=== PATIENT | male | born 1945 | race African-American/Black ===

== ENCOUNTER 2023-09-18 14:34 | Inpatient (IN) | payer MEDICARE ==
[~2023-09-18] VITALS: Ht 182.9 cm; Wt 82.1 kg
[2023-09-18] MEDS: SODIUM CHLORIDE 0.9% 1,000 ML IV ONE (15:00)
[2023-09-18 15:28] LABS: HEMATOCRIT. 39.9 % (42.0-52.0); HEMOGLOBIN. 13.3 g/dL (14.0-18.0); MEAN CORPUSCULAR HEMOGLOBIN 30.7 pg (28.0-32.0); MEAN CORPUSCULAR HGB CONC 33.3 g/dL (31.0-37.0); MEAN CORPUSCULAR VOLUME 92.1 fL (80.0-94.0); MEAN PLATELET VOLUME 9.6 fl (7.4-10.4); PLATELET 202 x1000/uL (130-400); RED BLOOD CELL COUNT 4.34 mill/uL (4.7-6.1); RED CELL DISTRIBUTION WIDTH 13.6 % (11.6-14.6); WHITE BLOOD COUNT 19.1 x1000/uL (4.5-11.0)
[2023-09-18 15:31] LABS: DIFFERENTIAL COMMENT 1
[2023-09-18 15:34] LABS: CARBON DIOXIDE 32 mEq/L (21-32)
[2023-09-18 15:35] LABS: CALCIUM 9.6 mg/dL (8.7-10.4); CHLORIDE 102 mEq/L (98-107); SODIUM 137 mEq/L (136-145)
[2023-09-18 15:39] LABS: INR 1.3; PROTHROMBIN TIME 14.5 sec (9.6-11.0)
[2023-09-18 15:40] LABS: GLUCOSE 299 mg/dL (70-105); LACTIC ACID 2.5 mmol/L (0.4-2.0); UREA NITROGEN BLOOD 22 mg/dL (9-23)
[2023-09-18 15:42] LABS: ACETAMINOPHEN < 2 ug/mL (10-30); CREATINE KINASE 41 IU/L (46-171)
[2023-09-18 15:44] LABS: T4 FREE 1.01 ng/dL (0.89-1.76); THYROID STIMULATING HORMONE 0.98 uIU/mL (0.55-4.78)
[2023-09-18] MEDS: CEFTRIAXONE 1GM/50ML 50 ML IV ONE (15:45)
[2023-09-18 15:50] LABS: TROPONIN I HIGH SENSITIVITY 74 ng/L (3.0-53)
[2023-09-18 16:10] LABS: BETA HYDROXYBUTYRATE 0.1 mMol/L (0.0-0.3)
[2023-09-18 17:26] LABS: ETHANOL BLOOD < 10 mg/dL (<10)
[2023-09-18] MEDS ORDERED: ACETAMINOPHEN 325MG TABLET PO PRN (17:30)
[2023-09-18] MEDS: DEXT 5%/0.9% NACL 1,000 ML IV SCH (17:30)
[2023-09-18] MEDS ORDERED: ONDANSETRON HCL 4MG/2ML INJ IV PRN (17:30)
[2023-09-18] MEDS ORDERED: IPRATROPIUM/ALBUTEROL 0.5-3(2.5)MG/3ML NEB HHN PRN (17:30)
[2023-09-18] MEDS ORDERED: DIPHENHYDRAMINE 50MG/ML VIAL IV PRN (17:30)
[2023-09-18] MEDS ORDERED: CLONIDINE 0.1MG TABLET PO PRN (17:30)
[2023-09-18 17:59] LABS: NUCLEATED RED BLOOD CELLS 1 /100 WBC; PLATELET ESTIMATE NORMAL
[2023-09-18 18:13] LABS: CLARITY URINE CLOUDY (CLEAR); COLOR URINE DARK YELLOW (YELLOW); GLUCOSE URINE 3+ (NEGATIVE); KETONES URINE NEGATIVE (NEGATIVE); LEUKOCYTE ESTERASE URINE 2+ (NEGATIVE); NITRITE URINE NEGATIVE (NEGATIVE); OCCULT BLOOD URINE 2+ (NEGATIVE); PH URINE 5.5 (4.5-8.0); PROTEIN URINE 2+ (NEGATIVE); SPECIFIC GRAVITY URINE 1.026 (1.005-1.030)
[2023-09-18 18:29] LABS: BACTERIA URINE 3+; SQUAMOUS EPITHELIAL CELL URINE FEW /lpf (RARE/1+)
[2023-09-18 18:30] LABS: *AMPHETAMINES SCREEN URINE NEGATIVE (NEGATIVE); *BARBITURATES SCREEN URINE NEGATIVE (NEGATIVE); *BENZODIAZEPINES SCREEN URINE NEGATIVE (NEGATIVE); *COCAINE SCREEN URINE NEGATIVE (NEGATIVE); CANNABINOID URINE SCREEN NEGATIVE (NEGATIVE); METHADONE URINE SCREEN NEGATIVE (NEGATIVE); OPIATES URINE SCREEN NEGATIVE (NEGATIVE); PHENCYCLIDINE URINE SCREEN NEGATIVE (NEGATIVE); WBC URINE 50-100 /hpf (0-2)
[2023-09-18 18:31] LABS: ECSTASY MDMA SCREEN URINE NEGATIVE (NEGATIVE)
[2023-09-18 22:00] VITALS: BP 159/95; PULSE 69; RESP 20; TEMP 99.9
[2023-09-18] MEDS ORDERED: DEXTROSE 50% WATER 50ML SYRINGE IV PRN (22:15)
[2023-09-18] MEDS: INSULIN LISPRO 100 UNITS/ML SUBCUT SCH (22:54)
[2023-09-18] MEDS: BLOOD SUGAR DIAGNOSTIC STRIP TEST SCH (22:54)
[2023-09-19] VITALS (7 sets, daily range): BP systolic 129–176; BP diastolic 50–111; PULSE 70–116; RESP 17–21; TEMP 97.4–98.8
[2023-09-19 06:24] LABS: CHLORIDE 103 mEq/L (98-107); POTASSIUM 3.8 mEq/L (3.5-5.1); SODIUM 138 mEq/L (136-145)
[2023-09-19 06:25] LABS: CARBON DIOXIDE 30 mEq/L (21-32)
[2023-09-19 06:26] LABS: CALCIUM 9.1 mg/dL (8.7-10.4)
[2023-09-19 06:30] LABS: GLUCOSE 271 mg/dL (70-105)
[2023-09-19 06:31] LABS: HEMATOCRIT. 41.1 % (42.0-52.0); MEAN CORPUSCULAR HEMOGLOBIN 30.9 pg (28.0-32.0); MEAN CORPUSCULAR HGB CONC 34.1 g/dL (31.0-37.0); MEAN CORPUSCULAR VOLUME 90.5 fL (80.0-94.0); MEAN PLATELET VOLUME 10.1 fl (7.4-10.4); PLATELET 184 x1000/uL (130-400); RED BLOOD CELL COUNT 4.54 mill/uL (4.7-6.1); RED CELL DISTRIBUTION WIDTH 13.9 % (11.6-14.6); UREA NITROGEN BLOOD 19 mg/dL (9-23); WHITE BLOOD COUNT 17.6 x1000/uL (4.5-11.0)
[2023-09-19 07:02] LABS: DIFFERENTIAL COMMENT 1
[2023-09-19 14:09] LABS: PLATELET ESTIMATE NORMAL
[2023-09-19] MEDS ORDERED: CEFTRIAXONE 1GM/50ML 50 ML IV SCH (15:00)
[2023-09-19] MEDS: CEFTRIAXONE 1GM/50ML 50 ML IV SCH (15:10)
[2023-09-19] MEDS: ENOXAPARIN 80MG/0.8ML SYR SUBCUT SCH (21:03)
[2023-09-19 21:18] LABS: TROPONIN I HIGH SENSITIVITY 47 ng/L (3.0-53)
[2023-09-20] VITALS (7 sets, daily range): BP systolic 105–148; BP diastolic 57–77; PULSE 68–97; RESP 18–20; TEMP 97.4–99; O2SAT 97
[2023-09-20 07:15] LABS: CARBON DIOXIDE 28 mEq/L (21-32); CHLORIDE 106 mEq/L (98-107); SODIUM 140 mEq/L (136-145)
[2023-09-20 07:21] LABS: GLUCOSE 225 mg/dL (70-105); UREA NITROGEN BLOOD 20 mg/dL (9-23)
[2023-09-20 07:26] LABS: HEMOGLOBIN. 13.7 g/dL (14.0-18.0); MEAN CORPUSCULAR HEMOGLOBIN 30.8 pg (28.0-32.0); MEAN CORPUSCULAR HGB CONC 33.4 g/dL (31.0-37.0); MEAN CORPUSCULAR VOLUME 92.1 fL (80.0-94.0); MEAN PLATELET VOLUME 10.6 fl (7.4-10.4); PLATELET 197 x1000/uL (130-400); RED BLOOD CELL COUNT 4.45 mill/uL (4.7-6.1); RED CELL DISTRIBUTION WIDTH 13.6 % (11.6-14.6)
[2023-09-20 08:27] LABS: DIFFERENTIAL COMMENT 1
[2023-09-20] MEDS: DILTIAZEM HCL 30MG TABLET PO SCH (08:58)
[2023-09-20] MEDS: INSULIN GLARGINE 100 UNITS/ML SUBCUT SCH (10:05)
[2023-09-20 12:22] LABS: PLATELET ESTIMATE NORMAL
[2023-09-20] MEDS: MAGNESIUM 2 G PREMIX 50 ML IV NR (15:01)
[2023-09-20] MEDS: CEFAZOLIN 1000MG PREMIX 50 ML IV SCH (15:04)
[2023-09-20] MEDS: LORAZEPAM 2MG/ML INJ IV PRN (20:27)
[2023-09-21 04:00] VITALS: BP 155/67; PULSE 89; RESP 20; TEMP 97.6
[2023-09-21 08:00] VITALS: BP 115/56; PULSE 64; RESP 20; TEMP 99
[2023-09-21 10:13] LABS: BASOPHILS % 0.2 % (0.0-2.0); EOSINOPHILS % 0.1 % (0.0-5.0); HEMATOCRIT. 35.3 % (42.0-52.0); HEMOGLOBIN. 11.9 g/dL (14.0-18.0); LYMPHOCYTES % 9.1 % (20.0-50.0); MEAN CORPUSCULAR HEMOGLOBIN 30.3 pg (28.0-32.0); MEAN CORPUSCULAR HGB CONC 33.8 g/dL (31.0-37.0); MEAN CORPUSCULAR VOLUME 89.9 fL (80.0-94.0); MEAN PLATELET VOLUME 9.8 fl (7.4-10.4); MONOCYTES % 8.5 % (2.0-8.0); NEUTROPHILS % 82.1 % (40.0-76.0); PLATELET 204 x1000/uL (130-400); RED BLOOD CELL COUNT 3.93 mill/uL (4.7-6.1); RED CELL DISTRIBUTION WIDTH 13.6 % (11.6-14.6); WHITE BLOOD COUNT 10.5 x1000/uL (4.5-11.0)
[2023-09-21 10:37] LABS: CARBON DIOXIDE 29 mEq/L (21-32); CHLORIDE 107 mEq/L (98-107); POTASSIUM 3.5 mEq/L (3.5-5.1); SODIUM 139 mEq/L (136-145)
[2023-09-21 10:38] LABS: CALCIUM 8.4 mg/dL (8.7-10.4)
[2023-09-21 10:43] LABS: CREATININE 0.9 mg/dL (0.6-1.3); GLUCOSE 239 mg/dL (70-105); UREA NITROGEN BLOOD 19 mg/dL (9-23)
[2023-09-21 12:00] VITALS: BP 155/48; PULSE 69; RESP 22; TEMP 98.6
[2023-09-21] MEDS ORDERED: LANTUSUD SUBCUT (13:47)
[2023-09-21] MEDS ORDERED: LEVO750T68 MT ×2 (13:47→17:27)
[2023-09-21] MEDS ORDERED: METF-414 MT ×2 (13:47→17:27)
[2023-09-21] MEDS ORDERED: APIX5TAB MT ×2 (13:47→17:27)
[2023-09-21 16:00] VITALS: BP_SYST 110; BP_SYST 143; BP_DIAS 53; BP_DIAS 60; PULSE 55; PULSE 68; RESP 20; TEMP 98
[2023-09-21] MEDS ORDERED: INSU100I28 SQ (17:27)
== END 2023-09-21 18:47 | disposition home or self-care (01) | DRG 871 ==
LOC: ER 14:34 → EDBEDREQSVC 17:10 → EDBEDREQTM 17:10 → EDBEDREQ 17:10 → EDBEDREQSVC 17:43 → 8WST 21:37
PROVIDERS: ADMIT Internal Medicine; ATTEND Internal Medicine
DX: A41.9 Sepsis, unspecified organism (principal); I21.A1 Myocardial infarction type 2; N39.0 Urinary tract infection, site not specified; I44.1 Atrioventricular block, second degree; E11.649 Type 2 diabetes mellitus with hypoglycemia without coma; I10 Essential (primary) hypertension; F03.90 Unspecified dementia, unspecified severity, without behavioral disturbance, psychotic disturbance, mood disturbance, and anxiety; R82.71 Bacteriuria; I48.0 Paroxysmal atrial fibrillation; Z79.4 Long term (current) use of insulin
CPT/HCPCS: 36415; 71045; 80048; 80305; 80307; 80320; 80329; 81003; 82010; 82550; 82962; 83036; 83605; 83735; 84145; 84439; 84443; 84484; 85025; 87077; 87186; 93005; 93306; 93970; 99291; J0690; J0696; J1650; J1815; J2060; J3475; J7030; G0480

== ENCOUNTER 2023-10-13 13:54 | Inpatient (IN) | payer MEDICARE ==
[~2023-10-13] VITALS: Ht 190.5 cm; Wt 78.0 kg
[~2023-10-13 13:54] MED LIST: APIX5TAB MT; INSU100I28 SQ; LEVO750T68 MT; METF-414 MT
[2023-10-13] MEDS: SODIUM CHLORIDE 0.9% 1,000 ML IV ONE (14:15)
[2023-10-13 14:50] LABS: BASOPHILS % 0.8 % (0.0-2.0); EOSINOPHILS % 1.3 % (0.0-5.0); HEMATOCRIT. 37.4 % (42.0-52.0); HEMOGLOBIN. 12.6 g/dL (14.0-18.0); LYMPHOCYTES % 15.7 % (20.0-50.0); MEAN CORPUSCULAR HGB CONC 33.6 g/dL (31.0-37.0); MEAN CORPUSCULAR VOLUME 89.1 fL (80.0-94.0); MEAN PLATELET VOLUME 8.5 fl (7.4-10.4); MONOCYTES % 9.2 % (2.0-8.0); PLATELET 196 x1000/uL (130-400); RED BLOOD CELL COUNT 4.19 mill/uL (4.7-6.1); RED CELL DISTRIBUTION WIDTH 14.9 % (11.6-14.6); WHITE BLOOD COUNT 7.6 x1000/uL (4.5-11.0)
[2023-10-13] MEDS: DEXTROSE 50% WATER 50ML SYRINGE IV ONE (14:55)
[2023-10-13 14:59] LABS: INR 1.2; PARTIAL THROMBOPLASTIN TIME 28.3 sec (23.4-31.0); PROTHROMBIN TIME 12.7 sec (9.6-11.0)
[2023-10-13 15:00] LABS: CHLORIDE 101 mEq/L (98-107); POTASSIUM 3.4 mEq/L (3.5-5.1); SODIUM 138 mEq/L (136-145)
[2023-10-13 15:01] LABS: CARBON DIOXIDE 35 mEq/L (21-32)
[2023-10-13 15:02] LABS: CALCIUM 9.4 mg/dL (8.7-10.4)
[2023-10-13 15:06] LABS: CREATININE 0.9 mg/dL (0.6-1.3)
[2023-10-13 15:07] LABS: UREA NITROGEN BLOOD 13 mg/dL (9-23)
[2023-10-13 15:08] LABS: ALANINE AMINOTRANSFERASE 8 IU/L (10-49); ALBUMIN 3.9 g/dL (3.2-4.8); AMMONIA 17 uMol/L (<32); ASPARTATE AMINOTRANSFERASE 13 IU/L (<34)
[2023-10-13 15:09] LABS: BILIRUBIN TOTAL 0.5 mg/dL (0.1-1.0); PROTEIN TOTAL 6.6 g/dL (6.0-8.3)
[2023-10-13 15:16] LABS: GLUCOSE 64 mg/dL (70-105)
[2023-10-13 15:17] LABS: ETHANOL BLOOD < 10 mg/dL (<10)
[2023-10-13 15:19] LABS: TROPONIN I HIGH SENSITIVITY 73 ng/L (3.0-53)
[2023-10-13 15:22] LABS: CLARITY URINE CLOUDY (CLEAR); COLOR URINE YELLOW (YELLOW); GLUCOSE URINE NEGATIVE (NEGATIVE); KETONES URINE NEGATIVE (NEGATIVE); LEUKOCYTE ESTERASE URINE 3+ (NEGATIVE); NITRITE URINE NEGATIVE (NEGATIVE); OCCULT BLOOD URINE 1+ (NEGATIVE); PROTEIN URINE 2+ (NEGATIVE); SPECIFIC GRAVITY URINE 1.008 (1.005-1.030)
[2023-10-13 15:40] LABS: *AMPHETAMINES SCREEN URINE NEGATIVE (NEGATIVE); *BARBITURATES SCREEN URINE NEGATIVE (NEGATIVE); *BENZODIAZEPINES SCREEN URINE NEGATIVE (NEGATIVE); *COCAINE SCREEN URINE NEGATIVE (NEGATIVE); CANNABINOID URINE SCREEN NEGATIVE (NEGATIVE); ECSTASY MDMA SCREEN URINE NEGATIVE (NEGATIVE); METHADONE URINE SCREEN NEGATIVE (NEGATIVE); OPIATES URINE SCREEN NEGATIVE (NEGATIVE); PHENCYCLIDINE URINE SCREEN NEGATIVE (NEGATIVE)
[2023-10-13 15:51] LABS: BACTERIA URINE 4+; SQUAMOUS EPITHELIAL CELL URINE NONE SEEN /lpf (RARE/1+)
[2023-10-13] MEDS: CEFTRIAXONE 1GM/50ML 50 ML IV ONE (17:01)
[2023-10-13] MEDS: ASPIRIN 325MG EC TABLET PO ONE (17:06)
[2023-10-13] MEDS ORDERED: IPRATROPIUM/ALBUTEROL 0.5-3(2.5)MG/3ML NEB HHN PRN (17:45)
[2023-10-13] MEDS ORDERED: DOCUSATE SODIUM 100MG CAPSULE PO PRN (17:45)
[2023-10-13] MEDS ORDERED: ACETAMINOPHEN 325MG TABLET PO PRN ×2 (17:45)
[2023-10-13] MEDS ORDERED: HYDRALAZINE 20MG/ML VIAL IV PRN (18:00)
[2023-10-13] MEDS: HYDRALAZINE 20MG/ML VIAL IV NR (18:04)
[2023-10-13] MEDS: LOSARTAN 50 MG TABLET PO SCH (18:58)
[2023-10-13] MEDS ORDERED: DEXTROSE 50% WATER 50ML SYRINGE IV PRN (20:15)
[2023-10-13 20:33] LABS: IRON 52 ug/dL (65-175)
[2023-10-13 20:34] LABS: LDL CHOLESTEROL 126 mg/dL (5-100); TRIGLYCERIDE 52 mg/dL (0-150)
[2023-10-13 20:35] LABS: CHOLESTEROL 179 mg/dL (<200); HDL CHOLESTEROL 44 mg/dL (>55); PHOSPHORUS 3.5 mg/dL (2.5-4.9)
[2023-10-13 20:36] LABS: TOTAL IRON BINDING CAPACITY 251 ug/dl (250-425)
[2023-10-13 20:39] LABS: FERRITIN 236 ng/mL (22-322); FOLIC ACID (FOLATE) SERUM 16.46 ng/mL (>5.38)
[2023-10-13 23:00] VITALS: BP 147/93; PULSE 80; RESP 18; TEMP 98.3
[2023-10-13 23:25] VITALS: BP 147/93; PULSE 80; RESP 23; TEMP 98.3
[2023-10-13] MEDS: BLOOD SUGAR DIAGNOSTIC STRIP TEST SCH (23:57)
[2023-10-14] MEDS: ATORVASTATIN CALCIUM 20MG TABLET PO SCH (00:19)
[2023-10-14] MEDS: APIXABAN 5 MG TABLET PO SCH (00:20)
[2023-10-14] MEDS: INSULIN LISPRO 100 UNITS/ML SUBCUT SCH (00:23)
[2023-10-14] MEDS: DEXT 5%/0.45% NACL 1000ML 1,000 ML IV SCH (00:28)
[2023-10-14] MEDS: MAGNESIUM 1 G PREMIX 100 ML IV NR (01:55)
[2023-10-14 04:00] VITALS: PULSE 83; RESP 22; TEMP 98.6
[2023-10-14 04:35] VITALS: BP 145/66; PULSE 80; RESP 18
[2023-10-14 06:19] LABS: CALCIUM 9.1 mg/dL (8.7-10.4); CHLORIDE 99 mEq/L (98-107); POTASSIUM 3.5 mEq/L (3.5-5.1); SODIUM 137 mEq/L (136-145)
[2023-10-14 06:20] LABS: CARBON DIOXIDE 31 mEq/L (21-32)
[2023-10-14 06:25] LABS: CREATININE 0.9 mg/dL (0.6-1.3); UREA NITROGEN BLOOD 13 mg/dL (9-23)
[2023-10-14 06:26] LABS: BASOPHILS % 0.8 % (0.0-2.0); EOSINOPHILS % 0.9 % (0.0-5.0); HEMATOCRIT. 39.4 % (42.0-52.0); HEMOGLOBIN. 13.4 g/dL (14.0-18.0); LYMPHOCYTES % 24.1 % (20.0-50.0); MEAN CORPUSCULAR HEMOGLOBIN 30.1 pg (28.0-32.0); MEAN CORPUSCULAR VOLUME 88.5 fL (80.0-94.0); MEAN PLATELET VOLUME 9.3 fl (7.4-10.4); MONOCYTES % 9.2 % (2.0-8.0); PLATELET 226 x1000/uL (130-400); RED BLOOD CELL COUNT 4.45 mill/uL (4.7-6.1); RED CELL DISTRIBUTION WIDTH 14.5 % (11.6-14.6); WHITE BLOOD COUNT 7.2 x1000/uL (4.5-11.0)
[2023-10-14 06:27] LABS: T4 FREE 1.24 ng/dL (0.89-1.76)
[2023-10-14 06:28] LABS: THYROID STIMULATING HORMONE 1.13 uIU/mL (0.55-4.78)
[2023-10-14 06:30] LABS: GLUCOSE 228 mg/dL (70-105)
[2023-10-14 06:31] LABS: TROPONIN I HIGH SENSITIVITY 105 ng/L (3.0-53)
[2023-10-14 06:40] LABS: VITAMIN B12 SERUM 843 pg/mL (211-911)
[2023-10-14] MEDS ORDERED: INSU100C6 SQ (07:40)
[2023-10-14] MEDS ORDERED: AMLO10TA80 PO (07:40)
[2023-10-14 08:00] VITALS: BP 104/73; PULSE 90; RESP 19; TEMP 98.8
[2023-10-14] MEDS: ASPIRIN 81MG EC TABLET PO SCH (09:23)
[2023-10-14] MEDS: POTASSIUM CHLORIDE 20MEQ/PACKET PO NR (11:56)
[2023-10-14 12:01] VITALS: BP 136/71; PULSE 73; RESP 20; TEMP 98.5
[2023-10-14] MEDS: DILTIAZEM HCL 30MG TABLET PO SCH (14:14)
[2023-10-14] MEDS: CEFTRIAXONE 1GM/50ML 50 ML IV SCH (16:51)
[2023-10-14] MEDS ORDERED: CEFTRIAXONE 1GM/50ML 50 ML IV SCH (17:00)
[2023-10-14 18:21] VITALS: BP 122/55; PULSE 67; RESP 19; TEMP 98
[2023-10-14 20:00] VITALS: BP 99/58; PULSE 67; RESP 16; TEMP 98
[2023-10-15] VITALS (7 sets, daily range): BP systolic 124–152; BP diastolic 62–99; PULSE 63–81; RESP 0–20; TEMP 97.7–98.5
[2023-10-15 07:15] LABS: BASOPHILS % 0.6 % (0.0-2.0); EOSINOPHILS % 1.1 % (0.0-5.0); HEMATOCRIT. 41.1 % (42.0-52.0); HEMOGLOBIN. 13.9 g/dL (14.0-18.0); LYMPHOCYTES % 27.8 % (20.0-50.0); MEAN CORPUSCULAR HEMOGLOBIN 30.2 pg (28.0-32.0); MEAN CORPUSCULAR HGB CONC 33.8 g/dL (31.0-37.0); MEAN CORPUSCULAR VOLUME 89.4 fL (80.0-94.0); MEAN PLATELET VOLUME 9.6 fl (7.4-10.4); NEUTROPHILS % 62.5 % (40.0-76.0); PLATELET 226 x1000/uL (130-400); RED BLOOD CELL COUNT 4.59 mill/uL (4.7-6.1); RED CELL DISTRIBUTION WIDTH 15.1 % (11.6-14.6)
[2023-10-15 07:16] LABS: CHLORIDE 99 mEq/L (98-107); POTASSIUM 3.7 mEq/L (3.5-5.1); SODIUM 139 mEq/L (136-145)
[2023-10-15 07:17] LABS: CALCIUM 9.1 mg/dL (8.7-10.4); CARBON DIOXIDE 32 mEq/L (21-32)
[2023-10-15 07:22] LABS: GLUCOSE 205 mg/dL (70-105); UREA NITROGEN BLOOD 17 mg/dL (9-23)
[2023-10-15 08:05] LABS: TROPONIN I HIGH SENSITIVITY 88 ng/L (3.0-53)
[2023-10-15] MEDS: MAGNESIUM OXIDE 400MG TABLET PO SCH (11:00)
[2023-10-15] MEDS: MAGNESIUM 2 G PREMIX 50 ML IV NR (11:00)
[2023-10-16] VITALS: BP 147/78; PULSE 72; RESP 18; TEMP 97.9
[2023-10-16 04:00] VITALS: BP 133/74; PULSE 70; RESP 16; TEMP 98.4
[2023-10-16 06:44] LABS: BASOPHILS % 0.5 % (0.0-2.0); EOSINOPHILS % 0.8 % (0.0-5.0); HEMATOCRIT. 37.2 % (42.0-52.0); HEMOGLOBIN. 12.9 g/dL (14.0-18.0); MEAN CORPUSCULAR HGB CONC 34.6 g/dL (31.0-37.0); MEAN CORPUSCULAR VOLUME 89.5 fL (80.0-94.0); MEAN PLATELET VOLUME 9.2 fl (7.4-10.4); MONOCYTES % 8.9 % (2.0-8.0); NEUTROPHILS % 68.8 % (40.0-76.0); PLATELET 197 x1000/uL (130-400); RED BLOOD CELL COUNT 4.16 mill/uL (4.7-6.1); RED CELL DISTRIBUTION WIDTH 15.1 % (11.6-14.6); WHITE BLOOD COUNT 7.6 x1000/uL (4.5-11.0)
[2023-10-16 06:51] LABS: CARBON DIOXIDE 29 mEq/L (21-32); CHLORIDE 104 mEq/L (98-107); POTASSIUM 3.8 mEq/L (3.5-5.1); SODIUM 140 mEq/L (136-145)
[2023-10-16 06:52] LABS: CALCIUM 8.7 mg/dL (8.7-10.4)
[2023-10-16 06:56] LABS: CREATININE 0.9 mg/dL (0.6-1.3)
[2023-10-16 06:57] LABS: GLUCOSE 136 mg/dL (70-105); UREA NITROGEN BLOOD 17 mg/dL (9-23)
[2023-10-16 08:00] VITALS: BP 171/76; PULSE 69; RESP 23; TEMP 97.7
[2023-10-16] MEDS: APIXABAN 2.5 MG TABLET PO SCH (09:02)
[2023-10-16 12:00] VITALS: BP 155/74; PULSE 67; RESP 20; TEMP 97.6
[2023-10-16 12:34] LABS: CLARITY URINE CLEAR (CLEAR); COLOR URINE YELLOW (YELLOW); GLUCOSE URINE NEGATIVE (NEGATIVE); KETONES URINE NEGATIVE (NEGATIVE); LEUKOCYTE ESTERASE URINE 3+ (NEGATIVE); NITRITE URINE NEGATIVE (NEGATIVE); OCCULT BLOOD URINE TRACE (NEGATIVE); PH URINE 7.5 (4.5-8.0); PROTEIN URINE TRACE (NEGATIVE); SPECIFIC GRAVITY URINE 1.013 (1.005-1.030)
[2023-10-16 12:56] LABS: WBC URINE 15-25 /hpf (0-2)
[2023-10-16 12:57] LABS: BACTERIA URINE FEW; RBC URINE 0-2 /hpf (0-2); SQUAMOUS EPITHELIAL CELL URINE NONE SEEN /lpf (RARE/1+); YEAST URINE NONE SEEN
[2023-10-16 16:00] VITALS: BP 170/69; PULSE 68; RESP 21; TEMP 97.8
[2023-10-16] MEDS: HALOPERIDOL LACTATE 5MG/ML VIAL IM NR (17:50)
[2023-10-16 20:00] VITALS: BP 143/65; PULSE 75; RESP 18; TEMP 98.6
[2023-10-17] VITALS: BP 160/68; PULSE 67; RESP 17; TEMP 98.5
[2023-10-17 04:00] VITALS: BP 130/51; PULSE 68; RESP 18
[2023-10-17 06:28] LABS: BASOPHILS % 0.4 % (0.0-2.0); EOSINOPHILS % 0.6 % (0.0-5.0); HEMATOCRIT. 36.6 % (42.0-52.0); HEMOGLOBIN. 12.7 g/dL (14.0-18.0); MEAN CORPUSCULAR HEMOGLOBIN 30.8 pg (28.0-32.0); MEAN CORPUSCULAR HGB CONC 34.7 g/dL (31.0-37.0); MEAN CORPUSCULAR VOLUME 88.7 fL (80.0-94.0); MEAN PLATELET VOLUME 9.8 fl (7.4-10.4); MONOCYTES % 9.8 % (2.0-8.0); NEUTROPHILS % 72.2 % (40.0-76.0); PLATELET 201 x1000/uL (130-400); RED BLOOD CELL COUNT 4.12 mill/uL (4.7-6.1); RED CELL DISTRIBUTION WIDTH 15.2 % (11.6-14.6); WHITE BLOOD COUNT 7.5 x1000/uL (4.5-11.0)
[2023-10-17 06:43] LABS: CALCIUM 8.7 mg/dL (8.7-10.4); CHLORIDE 102 mEq/L (98-107); POTASSIUM 4.1 mEq/L (3.5-5.1); SODIUM 137 mEq/L (136-145)
[2023-10-17 06:44] LABS: CARBON DIOXIDE 29 mEq/L (21-32)
[2023-10-17 06:49] LABS: CREATININE 0.8 mg/dL (0.6-1.3); GLUCOSE 209 mg/dL (70-105)
[2023-10-17 06:50] LABS: UREA NITROGEN BLOOD 15 mg/dL (9-23)
[2023-10-17] MEDS ORDERED: DEXTROSE 50% WATER 50ML SYRINGE IV PRN (07:30)
[2023-10-17 08:00] VITALS: BP 150/65; PULSE 68; RESP 19; TEMP 98.8
[2023-10-17] MEDS: INSULIN LISPRO 100 UNITS/ML SUBCUT NR (08:28)
[2023-10-17] MEDS: INSULIN GLARGINE 100 UNITS/ML SUBCUT SCH (10:30)
[2023-10-17] MEDS ORDERED: LATA2.5D14 EACHEYE (11:19)
[2023-10-17] MEDS ORDERED: MAGNESIUM 2 G PREMIX 50 ML IV NR (11:30)
[2023-10-17] MEDS ORDERED: ATOR20TA PO (11:31)
[2023-10-17] MEDS ORDERED: APIX2.5T PO (11:31)
[2023-10-17] MEDS ORDERED: DILT30TA3 PO (11:31)
[2023-10-17] MEDS ORDERED: LANTUSUD SUBCUT (11:31)
[2023-10-17] MEDS ORDERED: DOCU-150 PO (11:31)
[2023-10-17] MEDS ORDERED: AMOX1TAB16 MT (11:51)
[2023-10-17 12:00] VITALS: BP 115/59; PULSE 69; RESP 19; TEMP 98.7
[2023-10-17] MEDS: BLOOD SUGAR DIAGNOSTIC STRIP TEST SCH (12:43)
[2023-10-17] MEDS: INSULIN LISPRO 100 UNITS/ML SUBCUT SCH (12:46)
[2023-10-17] MEDS: MAGNESIUM 2 G PREMIX 50 ML IV NR (13:57)
[2023-10-17 15:17] VITALS: BP 115/59; PULSE 64; TEMP 98.7; O2SAT 99
[2023-10-17 16:00] VITALS: BP 113/70; PULSE 68; RESP 21; TEMP 98.5
== END 2023-10-17 17:00 | DRG 637 ==
LOC: ER 13:54 → EDBEDREQ 14:23 → 3WST 16:52 → EDBEDREQ 16:56 → EDBEDREQTM 16:56
PROVIDERS: ADMIT Internal Medicine; ATTEND Internal Medicine
DX: E11.649 Type 2 diabetes mellitus with hypoglycemia without coma (principal); G93.41 Metabolic encephalopathy; N39.0 Urinary tract infection, site not specified; F03.918 Unspecified dementia, unspecified severity, with other behavioral disturbance; I16.9 Hypertensive crisis, unspecified; E87.6 Hypokalemia; D64.9 Anemia, unspecified; I48.0 Paroxysmal atrial fibrillation; E83.42 Hypomagnesemia; I44.0 Atrioventricular block, first degree; I10 Essential (primary) hypertension; L89.156 Pressure-induced deep tissue damage of sacral region; Z79.4 Long term (current) use of insulin; Z79.01 Long term (current) use of anticoagulants; Z79.82 Long term (current) use of aspirin; Z79.84 Long term (current) use of oral hypoglycemic drugs; Z88.2 Allergy status to sulfonamides; Z88.1 Allergy status to other antibiotic agents
CPT/HCPCS: 36415; 71045; 80048; 80053; 80061; 80305; 80320; 81003; 82140; 82607; 82728; 82746; 82962; 83036; 83540; 83550; 83605; 83735; 83880; 84100; 84439; 84443; 84481; 84484; 85025; 87077; 87186; 93005; 93970; 97110; 97162; 97167; 97530; 97535; 99285; J0360; J0696; J1630; J1815; J3475; J7030; G0480

== ENCOUNTER 2023-12-23 16:45 | Emergency (ER) | payer MEDICARE ==
[~2023-12-23] VITALS: Ht 185.4 cm; Wt 86.0 kg
[~2023-12-23 16:45] MED LIST changes: +AMOX1TAB16 MT; +APIX2.5T PO; -APIX5TAB MT; +ATOR20TA PO; +DILT30TA3 PO; +DOCU-150 PO; -INSU100I28 SQ; +LANTUSUD SUBCUT; +LATA2.5D14 EACHEYE; -LEVO750T68 MT
[2023-12-23 16:55] VITALS: O2SAT 99
[2023-12-23] MEDS: ACETAMINOPHEN 325MG TABLET PO ONE (18:27)
[2023-12-23] MEDS ORDERED: TOPUD MT (21:10)
[2023-12-24 03:27] VITALS: BP 155/68; PULSE 78; RESP 18; TEMP 98.2
== END 2023-12-24 03:27 ==
LOC: ER 16:45
DX: S00.83XA Contusion of other part of head, initial encounter (principal); X58.XXXA Exposure to other specified factors, initial encounter; Y93.9 Activity, unspecified; Y92.89 Other specified places as the place of occurrence of the external cause; Y99.8 Other external cause status; E11.9 Type 2 diabetes mellitus without complications; I25.2 Old myocardial infarction; F19.90 Other psychoactive substance use, unspecified, uncomplicated; I48.91 Unspecified atrial fibrillation; W01.0XXA Fall on same level from slipping, tripping and stumbling without subsequent striking against object, initial encounter; Y93.89 Activity, other specified
CPT/HCPCS: 72100; 73523; 73552; 99284